=== PATIENT | female | born 1955 | race Caucasian/White ===

== ENCOUNTER → 2016-10-17 | Emergency (ER) | payer OTHER ==
--- NOTE | 2016-10-18 09:33 | ED UPPER/LOWER EXTREMITY COMPL ---
History of Present Illness General Chief Complaint: Upper Extremity Problem Stated Complaint: UXT Source: patient Exam Limitations: no limitations Vital Signs & Intake/Output Vital Signs & Intake/Output Blood pressure 153/76, pulse 78, respirations 20, temperature 99.2, Allergies Coded Allergies: NO KNOWN ALLERGIES (09/07/12) Triage Nurses Notes Reviewed? yes Onset: Abrupt Duration: week(s): (1), constant, continues in ED Timing: recent history Severity: moderate, severe No Modifying Factors: none HPI: 61-year-old female comes into emergency room for further evaluation of swelling and pain to her left upper extremity. Patient reports that she fell about a week ago. She has a bad fracture of her humerus bone. She has seen Dr. Handy from orthopedic ready for follow-up. She has been taking ibuprofen at home. She comes in tonight due to some increased swelling to the left arm and wants to be reevaluated. Some bruising to the entire arm. Patient admits that her arms been slightly hanging with her hand downward. (CHRIS NORTH) Past History Medical History Any Pertinent Medical History? none Surgical History Surgical History: non-contributory Psychosocial History What is your primary language Stateless Family History Hx Contributory? No (CHRIS NORTH) Review of Systems Review of Systems Constitutional: Reports: no symptoms. EENTM: Reports: no symptoms. Respiratory: Reports: no symptoms. Cardiovascular: Reports: no symptoms. Gastrointestinal/Abdominal: Reports: no symptoms. Genitourinary: Reports: no symptoms. Musculoskeletal: Reports: see HPI. Skin: Reports: no symptoms. Neurological/Psychological: Reports: no symptoms. Hematologic/Endocrine: Reports: no symptoms. Immunological: Reports: no symptoms. All Other Systems: Reviewed and Negative (CHRIS NORTH) Physical Exam Physical Exam General Appearance: well developed/nourished, mild distress Head: atraumatic Eyes: Bilateral: normal appearance. Ears, Nose, Throat: normal ENT inspection, hearing grossly normal Neck: normal inspection Cardiovascular/Respiratory: no respiratory distress Back: normal inspection Shoulder Left: ecchymosis Elbow Left: ecchymosis Neurologic/Tendon: normal sensation, normal motor functions, normal tendon functions, responds to pain, no pulse deficit Skin: intact, normal color, warm/dry Lymphatic: no anterior cervical larry Comments: Patient has ecchymosis and bruising extending from the proximal humerus all the way down to her hand, some edema in the entire extremity but no pitting edema, radial pulses 2+, cap refill intact, (CHRIS NORTH) Progress Differential Diagnosis: compartment syndrome, contusion, dislocation, DVT, fracture, gout, septic arthritis, sprain, tendon injury Plan of Care: Very low suspicion for DVT at this time. Ultrasound is not currently here at the moment. I feel that the swelling is likely from gravity. Patient has been having her hand hanging to the ground. I exaplined to the patient she needs to stay in her shoulder immobilizer and keep her hand slightly elevated. Patient was told to follow-up with her orthopedic doctor and return tomorrow for possible ultrasound of the arm if she had any worsening of symptoms. Discussed the possibility of DVT with the patient. I told her I have a low suspicion but it cannot be ruled out. Otherwise patient needs close follow-up on Wednesday with orthopedic and primary care doctor for possible outpatient ultrasound's phone doesn't improve. (CHRIS NORTH) Departure Departure Disposition: HOME OR SELF CARE Condition: Stable Clinical Impression Primary Impression: Fracture of humerus, left, closed Referrals: ART GRAHAM,TANA Whyte (PCP/Family) Additional Instructions: pt given hard copy hand written discharge forms. Departure Forms: Customer Survey General Discharge Information (CHRIS NORTH) PA/SUPERINTENDENT HOUSE Co-Sign Statement Statement: ED Attending supervision documentation- [] I saw and evaluated the patient. I have also reviewed all the pertinent lab results and diagnostic results. I agree with the findings and the plan of care as documented in the PA's/SUPERINTENDENT HOUSE's documentation. [x] I have reviewed the ED Record and agree with the PA's/SUPERINTENDENT HOUSE's documentation. [] Additions or exceptions (if any) to the PAs/SUPERINTENDENT HOUSE's note and plan are summarized below: [] (KLARISSA DORADO DO)
== END ==
LOC: ERH
DX: S42.302A Unspecified fracture of shaft of humerus, left arm, initial encounter for closed fracture (principal); W19.XXXA Unspecified fall, initial encounter; Y92.9 Unspecified place or not applicable; Y93.9 Activity, unspecified